=== PATIENT | male | born 1965 | race African-American/Black ===

== ENCOUNTER 2016-09-07 13:25 | Emergency (ER) | payer MEDICARE, MEDICAID ==
[~2016-09-07] VITALS: Ht 172.7 cm; Wt 100.0 kg
[~2016-09-07 13:25] MED LIST: AMOX875T PO; FENO145T2 PO; FOLI5CAP PO; LEVE500T8 PO; LOVA20TA PO; MULTTAB67 PO; VITA10003 PO
[2016-09-07 13:26] VITALS: BP 129/73; PULSE 96; RESP 15; TEMP 99.4; O2SAT 98
--- NOTE | 2016-09-07 14:25 | PD ---
HPI Chief Complaint: Cold / Flu Symptoms Time Seen by Provider: 14:00 Travel History International Travel<30 days: No Contact w/Intl Traveler<30days: No Traveled to known affect area: No History of Present Illness HPI 51-year-old Afro-Beninese male presents the emergency department approximately one week history of upper respiratory type symptoms. Patient states it started last week in improved at first but then worsened over the weekend. Patient is been taking [id number] cough medications for the past week without much improvement. He denies significant shortness of breath, but has had a productive cough which is worsened in the last 2 days. Blake no nausea or vomiting but has decreased appetite. He has generalized body aches and fatigue. He denies abdominal pain or urinary symptoms. Patient denies significant sore throat but has significant congestion and sinus drainage. He denies ear pain. He is a nonsmoker. He has no known drug allergies. PFSH Past Medical History Seizures: Yes Social History Alcohol Use: No Tobacco Use: No Substance Use: No Allergies-Medications (Allergen,Severity, Reaction): Coded Allergies: No Known Allergies (Unverified , 09/07/16) Reported Meds & Prescriptions Reported Meds & Active Scripts Active Amoxicillin 875 Mg Tab 875 Mg PO BID Reported Folic Acid 5 Mg Cap 5 Mg PO DAILY Vitamin D-3 (Cholecalciferol) 1,000 Unit Tab 1,000 Units PO DAILY Lovastatin 20 Mg Tab 20 Mg PO DAILY Fenofibrate 145 Mg Tab 145 Mg PO DAILY Levetiracetam 500 Mg Tab 500 Mg PO DAILY Multiple Vitamin 1 Tab 1 Tab PO DAILY Review of Systems General / Constitutional: Positive: Fever, Chills Eyes: No: Visual changes HENT: Positive: Headaches, Rhinitis, Rhinorrhea, Congestion, No: Vertigo, Lightheadedness, Sore Throat, Nosebleed, Neck Stiffness, Neck Pain, Gingival Bleeding, Dental Difficulties, Ear Discharge, Earache Cardiovascular: No: Chest Pain or Discomfort Respiratory: Positive: Cough, Wheezing, Sneezing, No: Shortness of Breath Gastrointestinal: Positive: Loss of Appetite, No: Nausea, Vomiting, Diarrhea, Abdominal Pain Genitourinary: No: Dysuria Musculoskeletal: No: Pain Skin: No Rash Neurologic: No: Weakness Psychiatric: No: Depression Endocrine: No: Polydipsia Hematologic/Lymphatic: No: Easy Bruising Physical Exam Narrative GENERAL: Patient appears ill but not septic. SKIN: Warm and dry. Mild decreased pallor. Normal turgor. No diaphoresis. HEAD: Atraumatic. Normocephalic. EYES: Pupils equal and round. No scleral icterus. No injection or drainage. ENT: No nasal bleeding or discharge. Mucous membranes pink and moist. TMs are clear bilaterally. Patient has purulent rhinitis. Pharynx appears somewhat injected with cobblestoning but otherwise unremarkable. No significant lymphadenopathy. Airway is patent. Uvula is midline. NECK: Trachea midline. Supple and nontender without significant lymphadenopathy. CARDIOVASCULAR: Regular rate and rhythm. RESPIRATORY: No accessory muscle use. Diffuse wheezes and rales cough throughout to auscultation. Breath sounds equal bilaterally. No egophony or fremitus. GASTROINTESTINAL: Abdomen soft, non-tender, nondistended. Hepatic and splenic margins not palpable. MUSCULOSKELETAL: Extremities without clubbing, cyanosis, or edema. No obvious deformities. NEUROLOGICAL: Awake and alert. No obvious cranial nerve deficits. Motor grossly within normal limits. Five out of 5 muscle strength in the arms and legs. Normal speech. PSYCHIATRIC: Appropriate mood and affect; insight and judgment normal. Data Data Last Documented VS Vital Signs Date Time Temp Pulse Resp B/P Pulse Ox O2 Delivery O2 Flow Rate FiO2 09/07/16 13:26 99.4 96 15 129/73 98 Orders Chest, Pa & Lat (09/07/16 14:00) [facility] Medical Decision Making Medical Screen Exam Complete: Yes Emergency Medical Condition: Yes Differential Diagnosis Upper respiratory infection. Sinusitis. Pneumonia. Bronchitis Narrative Course Patient is medically stable at time of exam. Chest x-ray PA and lateral was ordered. Chest x-ray is read as normal for patient of this age by radiologist. No acute findings noted. Patient is felt to have bronchitis sinusitis. Patient will be treated with Levaquin 500 mg daily for the next 10 days. She given Flonase nasal spray 2 sprays each nostril daily. Patient is given prednisone 20 mg twice a day 5 days. Patient is to rest and push fluids and follow-up as needed. Diagnosis Primary Impression: Bronchitis Additional Impression: Sinusitis, acute Qualified Code: J01.40 - Acute pansinusitis, recurrence not specified Referrals: [facility] Primary Care Physician Patient Instructions: Acute Bronchitis (ED), General Instructions, Sinusitis ( ED) Additional Instructions: Chest x-ray is read as normal for patient of this age by radiologist. No acute findings noted. Patient is felt to have bronchitis sinusitis. Patient will be treated with Levaquin 500 mg daily for the next 10 days. She given Flonase nasal spray 2 sprays each nostril daily. Patient is given prednisone 20 mg twice a day 5 days. Patient is to rest and push fluids and follow-up as needed. Med/Other Pt SpecificInfo: Prescription(s) given Disposition: 01 DISCHARGE HOME Condition: Stable Donis Curiel Sep 07, 2016 14:25
--- NOTE | 2016-09-07 14:38 | RADRPT ---
EXAM DATE/TIME: 09/07/2016 14:16 [facility] COMPARISON: No previous studies available for comparison. INDICATIONS : Fever and cough. MEDICAL HISTORY : Seizure SURGICAL HISTORY : None. ENCOUNTER: Initial ACUITY: 4 - 6 days PAIN SCORE: 3/10 LOCATION: Bilateral chest FINDINGS: PA and lateral views of the chest demonstrate the lungs to be symmetrically aerated without evidence of mass, infiltrate or effusion. The cardiomediastinal contours are unremarkable. Osseous structure s are intact. CONCLUSION: Normal examination for a patient of this age. Isrrael Luke MD on September 07, 2016 at 14:34 Board Certified Radiologist. This report was verified electronically.
[2016-09-07] MEDS ORDERED: LEVA500T20 PO (14:52)
[2016-09-07] MEDS ORDERED: FLUT1SPR5 EACH NARE (14:52)
[2016-09-07] MEDS ORDERED: FOLI400T PO (15:31)
[2016-09-07] MEDS ORDERED: CHOL100025 CHEW (15:32)
== END 2016-09-07 15:38 | disposition home or self-care (01) ==
LOC: NEPK 13:25
DX: J40 Bronchitis, not specified as acute or chronic (principal); J01.40 Acute pansinusitis, unspecified; M79.1 Myalgia; R53.83 Other fatigue
CPT/HCPCS: 71020; 99284

== ENCOUNTER 2017-02-17 10:32 | Emergency (ER) | payer MEDICARE, MEDICAID ==
[~2017-02-17] VITALS: Ht 172.7 cm; Wt 90.0 kg
[~2017-02-17 10:32] MED LIST changes: -AMOX875T PO; +CHOL100025 CHEW; +FLUT1SPR5 EACH NARE; +FOLI400T PO; -FOLI5CAP PO; +LEVA500T33 PO; -VITA10003 PO
[2017-02-17 10:33] VITALS: BP 139/79; PULSE 87; RESP 16; TEMP 98.4; O2SAT 97
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
[2017-02-17] MEDS ORDERED: ORPHENADRINE INJ 60 MG/2 ML AMP IM ONE (12:30)
[2017-02-17] MEDS ORDERED: KETOROLAC TROMETHAMINE 60 MG/2 ML (IM) VIAL IM ONE ×3 (12:30→12:39)
[2017-02-17] MEDS ORDERED: ORPHENADRINE INJ 60 MG/2 ML AMP ONE (12:39)
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
[2017-02-17] MEDS ORDERED: IBUP1TAB7 PO (13:27)
[2017-02-17] MEDS ORDERED: ROBA500T PO (13:27)
== END 2017-02-17 13:57 | disposition home or self-care (01) ==
LOC: NEPD 10:32
DX: R51 Headache (principal); S20.211A Contusion of right front wall of thorax, initial encounter; M54.5 Low back pain; R56.9 Unspecified convulsions; E78.00 Pure hypercholesterolemia, unspecified; V43.52XA Car driver injured in collision with other type car in traffic accident, initial encounter; Z79.899 Other long term (current) drug therapy
CPT/HCPCS: 70450; 71101; 72100; 96372; 99285; J1885; J2360

== ENCOUNTER 2018-01-12 21:00 | Inpatient (IN) ==
[2018-01-13] MEDS ORDERED: Sod Chloride 0.9% Inj 1,000 ML IV.SIG ONE (02:26)
[2018-01-13] MEDS ORDERED: Morphine Inj 4 MG/ML Vial IV.PUSH ONE (02:26)
--- NOTE | 2018-01-13 02:30 | ED ---
HPI General Chief Complaint: Abdominal Pain Stated Complaint: abd pain Time Seen by Provider: 01/13/18 02:17 Source: patient Mode of arrival: ambulatory Limitations: no limitations History of Present Illness MD complaint: Reports other (Left scrotal area pain) Onset (ago): week(s) (4) Pain Consistency: constant Location: Reports L flank (Left inguinal) Severity: severe Severity scale (1-10): 8 Quality: Reports aching and sharp Radiation: Reports none Migration to: Reports no migration Relieving factors: nothing Exacerbating factors: nothing Associated symptoms: Reports denies other symptoms Related Data Home Medications Medication Instructions Recorded Confirmed levetiracetam 500 mg PO BID 12/22/17 12/22/17 Previous Rx's Medication Instructions Recorded ibuprofen 600 mg PO TID PRN #30 tab 12/22/17 methocarbamol [Robaxin-] 750 mg PO QID PRN #40 tab 12/22/17 Allergies Allergy/AdvReac Type Severity Reaction Status Date / Time No Known Allergies Allergy Verified 01/12/18 22:13 Review of Systems ROS: all other systems reviewed are negative PMFSH History History Provided By: Patient Medical History Medical History Seizure (Acute) Surgical History Surgical History No history of previous surgery (Acute) Social History Social History Substance History: No History of Abuse Second Hand Smoke Exposure: No Smoking Status: Never smoker How Often Do You Have a Drink Containing Alcohol: Never Recent Travel in [facility] within the Last 8 Weeks: No Recent Out of Country Travel within the Last 8 Weeks: No Immunization History Tetanus Immunization: >5 Years Exam Narrative Exam Narrative: GENERAL: Well-nourished, well-developed patient in no apparent distress. SKIN: Warm and dry. HEAD: Atraumatic. Normocephalic. EYES: Pupils equal and round. No scleral icterus. No injection or drainage. ENT: No nasal bleeding or discharge. Mucous membranes pink and moist. NECK: Trachea midline. No JVD. CARDIOVASCULAR: Regular rate and rhythm. no rubs or gallops RESPIRATORY: No accessory muscle use. Clear to auscultation. Breath sounds equal bilaterally. GASTROINTESTINAL: Abdomen soft, non-tender, nondistended. No rebound or guarding.... Large left inguinal hernia, into left hemiscrotum, non-reducible MUSCULOSKELETAL: Extremities without clubbing, cyanosis, or edema. No obvious deformities. NEUROLOGICAL: Awake and alert. No obvious cranial nerve deficits. Motor grossly within normal limits. Five out of 5 muscle strength in the arms and legs. Normal speech. Course Initial Documented Vital Signs Temperature 98.1 F 01/12/18 22:10 Pulse Rate 57 L 01/12/18 22:10 Respiratory Rate 15 01/12/18 22:10 Blood Pressure 144/67 H 01/12/18 22:10 Pulse Oximetry 98 01/12/18 22:10 Last Documented Vital Signs Temperature 98.1 F 01/12/18 22:10 Pulse Rate 89 01/12/18 22:13 Respiratory Rate 18 01/12/18 22:13 Blood Pressure 161/90 H 01/12/18 22:13 Pulse Oximetry 100 01/12/18 22:13 Medical Decision Making MDM Narrative Medical Screen Exam Complete: Yes Emergency Medical Condition: Yes Medical Records Medical records reviewed: Yes I reviewed the patient's medical records. Lab Data Lab results reviewed: Yes I reviewed the patient's lab results. Result diagrams: 01/13/18 02:53 01/13/18 02:53 Lab Results 01/13/18 Range/Units 02:53 WBC 6.6 (4.0-11.0) th/mm3 RBC 5.88 (4.50-5.90) mil/mm3 Hgb 15.3 (13.0-17.0) gm/dL Hct 46.3 (39.0-51.0) % MCV 78.7 L (80.0-100.0) fL MCH 25.9 L (27.0-34.0) pg MCHC 33.0 (32.0-36.0) % RDW 14.1 (11.6-17.2) % Plt Count 311 (150-450) th/mm3 MPV 7.6 (7.0-11.0) fL Neut % (Auto) 32.6 (16.0-70.0) % Lymph % (Auto) 51.5 H (9.0-44.0) % [place] % (Auto) 10.6 H (0.0-8.0) % Eos % (Auto) 4.9 H (0.0-4.0) % Baso % (Auto) 0.4 (0.0-2.0) % Neut # (Auto) 2.2 (1.8-7.7) th/mm3 Lymph # (Auto) 3.4 (1.0-4.8) th/mm3 [place] # (Auto) 0.7 (0.0-0.9) th/mm3 Eos # (Auto) 0.3 (0.0-0.4) th/mm3 Baso # (Auto) 0.0 (0.0-0.2) th/mm3 WBC Differential . Differential Comment Auto diff final Imaging Data Attestation: I personally reviewed and interpreted this imaging study as follows : My impression: large left inguinal hernia without perforation, no edematous wall noted. Discharge Plan Discharge Disposition Patient Disposition: 30 Still Patient Discharge Condition Condition: Stable Discharge Details Diagnosis: Incarcerated left inguinal hernia Physicians Team ED Provider: Yemi Cox Primary Care Provider: UNKNOWN, Rxs /Orders / Referrals /Forms Prescriptions: No Action levetiracetam 500 mg Tablet 500 mg PO BID RF: 0 methocarbamol [Robaxin-750] 750 mg tablet 750 mg PO QID PRN (Reason: pain) Qty: 40 RF: 0 ibuprofen 600 mg tablet 600 mg PO TID PRN (Reason: pain) Qty: 30 RF: 0 Discharge Interventions Interventions: Vital Signs Last Done: 01/12/18 22:13 Status ED Status: With Doctor
[2018-01-13 03:17] LABS: Bilirubin,Urine Negative (Negative); Clarity,Urine Hazy (Clear); Color,Urine Yellow (Yellw/Straw); Glucose,Urine (UA) Negative (Negative); Leukocyte Esterase,Urine Negative (Negative); Mucus,Urine Few /lpf (Occasional); Nitrite,Urine Negative (Negative); Specific Gravity,Urine 1.019 (1.002-1.035)
[2018-01-13 03:18] LABS: Baso % (Auto) 0.4 % (0.0-2.0); Eos # (Auto) 0.3 th/mm3 (0.0-0.4); Eos % (Auto) 4.9 % (0.0-4.0); Hematocrit 46.3 % (39.0-51.0); Hemoglobin 15.3 gm/dL (13.0-17.0); Lymph # (Auto) 3.4 th/mm3 (1.0-4.8); Lymph % (Auto) 51.5 % (9.0-44.0); Mean Corpuscular Hemoglobin 25.9 pg (27.0-34.0); Mean Corpuscular Volume 78.7 fL (80.0-100.0); Mean Platelet Volume 7.6 fL (7.0-11.0); Mono # (Auto) 0.7 th/mm3 (0.0-0.9); Mono % (Auto) 10.6 % (0.0-8.0); Neut # (Auto) 2.2 th/mm3 (1.8-7.7); Neut % (Auto) 32.6 % (16.0-70.0); Platelet Count 311 th/mm3 (150-450); Red Blood Count 5.88 mil/mm3 (4.50-5.90); Red Cell Distribution Width 14.1 % (11.6-17.2); White Blood Count 6.6 th/mm3 (4.0-11.0)
--- NOTE | 2018-01-13 03:31 | CT ---
EXAM DATE: 01/13/2018 3:16 AM EST AGE/SEX: 52 years / Male INDICATIONS: Left lower quadrant pain and swelling, patient has persistent inguinal hernia. CLINICAL DATA: This is the patient's initial encounter. Patient reports that signs and symptoms have been present for 1 day and indicates a pain score of 10/10. MEDICAL/SURGICAL HISTORY: . Inguinal hernia. None. RADIATION DOSE: 7.46 CTDI (mGy) COMPARISON: No prior exams available for comparison. TECHNIQUE: Multiple contiguous axial images were obtained through the abdomen. Images were obtained using multiple row detector helical technique. Using automated exposure control and adjustment of the mA and/or kV according to patient size, radiation dose was kept as low as reasonably achievable to o btain optimal diagnostic quality images. DICOM format image data is available electronically for rev iew and comparison. FINDINGS: Lower Lungs: The visualized lower lungs are clear. Liver: The liver has a homogeneous density without space-occupying lesion. There is no dilation of th e biliary tree. Spleen: Homogeneous density without enlargement. Pancreas: Unremarkable without mass or calcification. Kidneys: Normal in size and shape. No evidence of mass or hydronephrosis. Adrenal Glands: Unremarkable. Aorta: The aorta and proximal iliac vessels are grossly unremarkable without aneurysmal dilation. Bowel/Mesentery: Colonic diverticulosis. No abnormal dilatation of bowel. No focal wall thickening o r inflammatory changes. Large left inguinal hernia containing loop of sigmoid colon. No definite inca rceration or obstruction. Abdominal Wall: Intact. Retroperitoneum: No evidence of adenopathy in the retrocrural, para-aortic, or deep pelvic regions. Bladder: Contours are smooth. Reproductive Organs: No abnormal masses or calcifications seen. Inguinal: Very large left inguinal hernia containing a loop of sigmoid colon. Bony Structures: Unremarkable. CONCLUSION: Large left inguinal hernia containing loop of sigmoid colon. No evidence of incarceration at present. Electronically signed by: Harshad Mathew MD 01/13/2018 3:30 AM EST
[2018-01-13 03:37] LABS: Albumin 4.6 g/dL (3.4-5.0); Anion Gap 10 meq/L (5-15); Aspartate Aminotransferase 31 U/L (15-37); Blood Urea Nitrogen 14 mg/dL (7-18); Calcium 9.2 mg/dL (8.5-10.1); Carbon Dioxide 28.2 meq/L (21.0-32.0); Chloride 101 meq/L (98-107); Glomerular Filtration Rate 69 mL/min (>89); Glucose,Random 99 mg/dL (74-106); Lipase 173 U/L (73-393); Sodium 139 meq/L (136-145)
[2018-01-13 03:41] LABS: Alanine Aminotransferase 43 U/L (12-78); Alkaline Phosphatase 47 U/L (45-117); Total Protein 9.1 g/dL (6.4-8.2)
[2018-01-13] MEDS ORDERED: Bisacodyl 10 MG Supp RECTAL PRN (03:54)
[2018-01-13] MEDS: Sod Chloride 0.9% Inj 1,000 ML IV.CONT SCH ×2 (04:03→20:07)
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
[2018-01-13] MEDS: levETIRAcetam 500 MG Tablet PO SCH ×2 (11:44→22:13)
[2018-01-13] MEDS ORDERED: Bupivacaine/Epinephrine PF Inj 0.5% 30 ML Vial ONE (13:51)
[2018-01-13] MEDS ORDERED: Lidocaine 1% Inj 50 ML Vial ONE (13:52)
[2018-01-13] MEDS ORDERED: Lidocaine 1%/Epinephrine 1:100,000 Inj 30 ML Vial ONE (14:44)
[2018-01-13] MEDS ORDERED: Metoprolol Tartrate 25 MG Tablet PO ONE (14:53)
[2018-01-13] MEDS ORDERED: Chlorhexidine Gluconate 2% 1 Pack (2 Cloths) TOPICAL ONE (14:53)
[2018-01-13] MEDS ORDERED: Sodium Chlor 0.9% Inj 500 ML IV.SIG ONE (15:00)
[2018-01-13] MEDS ORDERED: Lidocaine PF 1% Inj 5 ML Syringe INFILTRATN ONE (16:49)
[2018-01-13] MEDS ORDERED: ceFAZolin 2 GM Premix Inj 2 GM/50 ML PIGGYBACK IV.SIG ONE (16:59)
[2018-01-13] MEDS ORDERED: fentaNYL Citrate Inj 100 MCG/2 ML Ampul ONE (19:18)
[2018-01-13] MEDS ORDERED: *morphine SULFATE 4 MG/ML PERIprocedure ONLY ONE (19:33)
[2018-01-13] MEDS ORDERED: *Meperidine Inj 25 MG/ML Vial PERIprocedural Use ONLY ONE (19:58)
--- NOTE | 2018-01-13 20:45 | P.OP ---
- Preoperative Diagnosis (1) Incarcerated left inguinal hernia - Postoperative Diagnosis (1) Incarcerated left inguinal hernia Date of procedure: 01/13/18 Procedure: Reduction and repair of incarcerated, sliding, left inguinal hernia with mesh Anesthesia: other (LMA) Surgeon: Dean Segovia MD Fruit Picker: Shira Naylor CFA Estimated blood loss (mL): 100 IV fluids (mL): 900 Operation and Findings: Patient was marked on the left side and confirmed by the patient. He was taken to the operating room and placed on the operating table in the supine position. After an adequate level of laryngeal mask anesthesia was instituted the left groin was shaved prepped and draped. Time-out was taken, confirming the correct patient, site, and procedure to be performed. Skin and subcutaneous tissue was infiltrated with local anesthetic and an incision made in the left groin and carried through the subcutaneous tissue. Further subfascial injections were made with local anesthetic and an incision made in the external oblique fascia. The underlying tissue was swept free and the iliohypogastric nerve was identified and preserved. It was not dissected out of its [place] location. The patient was then noted to have an extremely large incarcerated hernia and the hernia was reduced from the scrotum up into the groin. The hernia sac was opened after dissecting much of the spermatic cord structures off of the hernia. The hernia was noted to be an extremely large sliding hernia with sigmoid colon comprised of part of the sidewall. This was dissected off of the hernia sac in the sigmoid colon and omentum was reduced into the abdominal cavity. The hernia sac was then ligated with a pursestring 2-0 silk suture to prevent extrusion of contents into the operative field. A sponge stick was used to push the sac back into the abdominal cavity. A 3 x 6 inch piece of atrium mesh was brought up in transfixed to the pubic tubercle with 2-0 Prolene suture. This was then run along the shelving edge of the inguinal ligament to complete the lateral edge of the repair. The mesh was split longitudinally to allow for egress of the cord structures. The floor was closed down with 2-0 Prolene sutures to prevent a large amount of intra- abdominal contents to push against the mesh. The mesh was then transfixed medially with interrupted 2-0 Prolene suture. The medial leaf of mesh was transfixed over the lateral leaf of mesh with 2 2-0 Prolene sutures. An additional excess piece of mesh was buttressed superiorly and medially to create more scar tissue to prevent hernia recurrence. With a newly created internal ring, and with hemostasis assured, the remaining local anesthetic was injected into the transversalis fascia and subcutaneous tissues. The external oblique fascia was closed with a running 3-0 Vicryl suture. Care was taken to keep the underlying tissues free from the repair. The subcutaneous tissue was reapproximated with interrupted 3-0 Vicryl suture and the skin closed with 5-0 PDS in a running subcuticular fashion. Sponge, needle and instrument counts were reported to be correct. The wound was dressed with Telfa and Tegaderm. The patient was extubated and taken back to the recovery room in stable condition.
[2018-01-13] MEDS: Morphine Inj 4 MG/ML Vial IV.PUSH PRN (22:13)
[2018-01-14] MEDS: Morphine Inj 4 MG/ML Vial IV.PUSH PRN ×4 (02:27→20:10)
[2018-01-14 07:06] LABS: Baso % (Auto) 0.1 % (0.0-2.0); Hematocrit 41.1 % (39.0-51.0); Lymph % (Auto) 8.2 % (9.0-44.0); Mean Corpuscular HGB Conc 34.1 % (32.0-36.0); Mean Corpuscular Hemoglobin 26.4 pg (27.0-34.0); Mean Corpuscular Volume 77.5 fL (80.0-100.0); Mean Platelet Volume 7.4 fL (7.0-11.0); Mono # (Auto) 1.6 th/mm3 (0.0-0.9); Mono % (Auto) 12.4 % (0.0-8.0); Neut % (Auto) 79.3 % (16.0-70.0); Platelet Count 254 th/mm3 (150-450); Red Blood Count 5.31 mil/mm3 (4.50-5.90); Red Cell Distribution Width 14.1 % (11.6-17.2); White Blood Count 12.7 th/mm3 (4.0-11.0)
[2018-01-14 07:31] LABS: Alanine Aminotransferase 38 U/L (12-78); Albumin 3.4 g/dL (3.4-5.0); Alkaline Phosphatase 38 U/L (45-117); Anion Gap 10 meq/L (5-15); Aspartate Aminotransferase 26 U/L (15-37); Blood Urea Nitrogen 12 mg/dL (7-18); Carbon Dioxide 25.2 meq/L (21.0-32.0); Chloride 105 meq/L (98-107); Glomerular Filtration Rate 75 mL/min (>89); Glucose,Random 128 mg/dL (74-106); Potassium 3.9 meq/L (3.5-5.1); Sodium 140 meq/L (136-145); Total Protein 7.2 g/dL (6.4-8.2)
[2018-01-14] MEDS: Fenofibrate 145 MG Tablet PO SCH (08:18)
[2018-01-14] MEDS: levETIRAcetam 500 MG Tablet PO SCH ×2 (08:18→20:10)
[2018-01-14] MEDS: Folic Acid 1 MG Tablet PO SCH (08:19)
--- NOTE | 2018-01-14 08:58 | P.PNIM ---
Subjective Interval history: f/u; incarcerated hernia in no acute distress. complaining of abdominal pain and mild nausea. no fever. no other complaints. Physical Exam Vital signs: Vital Signs 01/13/18 11:45 01/13/18 13:02 01/13/18 13:22 Temperature 97.9 F Pulse Rate 80 53 L Respiratory Rate 20 17 Blood Pressure 102/54 L 111/57 L Pulse Oximetry 99 100 01/13/18 19:10 01/13/18 19:30 01/13/18 19:45 Temperature 97.7 F Pulse Rate 85 90 81 Respiratory Rate 20 22 16 Blood Pressure 114/62 117/72 141/75 H Pulse Oximetry 97 98 98 01/13/18 20:00 01/13/18 20:04 01/13/18 20:15 Temperature Pulse Rate 84 76 Respiratory Rate 18 14 16 Blood Pressure 131/62 121/62 Pulse Oximetry 01/13/18 20:30 01/13/18 21:05 01/14/18 00:00 Temperature 98.1 F 98.9 F 98.4 F Pulse Rate 75 86 81 Respiratory Rate 16 19 18 Blood Pressure 115/62 130/73 126/71 Pulse Oximetry 100 100 100 01/14/18 08:00 Temperature 98.3 F Pulse Rate 73 Respiratory Rate 17 Blood Pressure 106/60 Pulse Oximetry 96 Intake & Output 01/13/18 01/14/18 01/14/18 18:59 06:59 18:59 Intake Total 550 / 550 2380 / 2380 Output Total 220 / 220 900 / 900 Balance 330 / 330 1480 / 1480 Weight 92.9 kg Intake: IV 550 / 550 1000 / 1000 NS Inj 1,000 ML @ 100 mls/hr IV 500 / 500 1000 / 1000 .CONT .Q10H [facility] Rx#:[id number] Ancef 2 GM Premix Inj 2 gm In 50 / 50 50 ml @ 0 mls/hr IV.SIG .STK- MED ONE Rx#:[id number] Oral 480 / 480 Anesthesia Amount 900 / 900 Output: Urine 220 / 220 800 / 800 Estimated Blood Loss 100 / 100 Other: # Voids 1 - Constitutional no acute distress - Routine Respiratory Exam Present: CTA bilaterally - Routine Cardiovascular Exam Present: RRR - Routine Abdominal Exam Present: soft, tenderness (mild generalized tenderness.) - Routine Extremities Exam Comments: no pedal edema. - Routine Neurological Exam Present: alert, oriented X3 Results - Labs CBC & Chem 7: 01/14/18 06:36 01/14/18 06:36 Laboratory Results - last 24 hr 01/14/18 01/14/18 06:36 06:36 WBC 12.7 H RBC 5.31 Hgb 14.0 Hct 41.1 MCV 77.5 L MCH 26.4 L MCHC 34.1 RDW 14.1 Plt Count 254 MPV 7.4 Neut % (Auto) 79.3 H Lymph % (Auto) 8.2 L [place] % (Auto) 12.4 H Eos % (Auto) 0.0 Baso % (Auto) 0.1 Neut # (Auto) 10.0 H Lymph # (Auto) 1.0 [place] # (Auto) 1.6 H Eos # (Auto) 0.0 Baso # (Auto) 0.0 WBC Differential . Differential Comment Auto diff final Sodium 140 Potassium 3.9 Chloride 105 Carbon Dioxide 25.2 Anion Gap 10 BUN 12 Creatinine 1.23 Estimated GFR 75 L Random Glucose 128 H Calcium 8.0 L D Total Bilirubin 0.6 AST 26 ALT 38 Alkaline Phosphatase 38 L Total Protein 7.2 D Albumin 3.4 D Assessment and Plan - Assessment (1) Incarcerated left inguinal hernia Code(s): K40.30 - Unilateral inguinal hernia, with obstruction, without gangrene , not specified as recurrent Status: Acute (2) Left inguinal hernia Code(s): K40.90 - Unilateral inguinal hernia, without obstruction or gangrene, not specified as recurrent Status: Acute - Plan Large left incarcerated inguinal hernia: -Surgery has been consulted; s/p surgical repair. -continue with pain control -management per general surgery Seizure disorder: -Continue Keppra Hyperlipidemia: Continue statin GI prophylaxis: PPI. Stool softener PRN constipation. DVT PPx: Lovenox Discharge Planning: home; when cleared by general surgery.
[2018-01-14] MEDS ORDERED: Folic Acid 1 MG Tablet PO SCH (09:00)
--- NOTE | 2018-01-14 10:51 | P.PNGS ---
Subjective Interval history: Resting in bed Painful Physical Exam Vital signs: Vital Signs 01/13/18 11:45 01/13/18 13:02 01/13/18 13:22 Temperature 97.9 F Pulse Rate 80 53 L Respiratory Rate 20 17 Blood Pressure 102/54 L 111/57 L Pulse Oximetry 99 100 01/13/18 19:10 01/13/18 19:30 01/13/18 19:45 Temperature 97.7 F Pulse Rate 85 90 81 Respiratory Rate 20 22 16 Blood Pressure 114/62 117/72 141/75 H Pulse Oximetry 97 98 98 01/13/18 20:00 01/13/18 20:04 01/13/18 20:15 Temperature Pulse Rate 84 76 Respiratory Rate 18 14 16 Blood Pressure 131/62 121/62 Pulse Oximetry 01/13/18 20:30 01/13/18 21:05 01/14/18 00:00 Temperature 98.1 F 98.9 F 98.4 F Pulse Rate 75 86 81 Respiratory Rate 16 19 18 Blood Pressure 115/62 130/73 126/71 Pulse Oximetry 100 100 100 01/14/18 08:00 Temperature 98.3 F Pulse Rate 73 Respiratory Rate 17 Blood Pressure 106/60 Pulse Oximetry 96 Intake & Output 01/13/18 01/14/18 01/14/18 18:59 06:59 18:59 Intake Total 550 / 550 2380 / 2380 Output Total 220 / 220 900 / 900 Balance 330 / 330 1480 / 1480 Weight 92.9 kg Intake: IV 550 / 550 1000 / 1000 NS Inj 1,000 ML @ 100 mls/hr IV 500 / 500 1000 / 1000 .CONT .Q10H [facility] Rx#:[id number] Ancef 2 GM Premix Inj 2 gm In 50 / 50 50 ml @ 0 mls/hr IV.SIG .STK- MED ONE Rx#:[id number] Oral 480 / 480 Anesthesia Amount 900 / 900 Output: Urine 220 / 220 800 / 800 Estimated Blood Loss 100 / 100 Other: # Voids 1 Narrative: Alert and awake Abd: soft LEFT groin with incision; athletic supporter in place Results - Labs 01/14/18 06:36 01/14/18 06:36 Laboratory Results - last 24 hr 01/14/18 01/14/18 06:36 06:36 WBC 12.7 H RBC 5.31 Hgb 14.0 Hct 41.1 MCV 77.5 L MCH 26.4 L MCHC 34.1 RDW 14.1 Plt Count 254 MPV 7.4 Neut % (Auto) 79.3 H Lymph % (Auto) 8.2 L [place] % (Auto) 12.4 H Eos % (Auto) 0.0 Baso % (Auto) 0.1 Neut # (Auto) 10.0 H Lymph # (Auto) 1.0 [place] # (Auto) 1.6 H Eos # (Auto) 0.0 Baso # (Auto) 0.0 WBC Differential . Differential Comment Auto diff final Sodium 140 Potassium 3.9 Chloride 105 Carbon Dioxide 25.2 Anion Gap 10 BUN 12 Creatinine 1.23 Estimated GFR 75 L Random Glucose 128 H Calcium 8.0 L D Total Bilirubin 0.6 AST 26 ALT 38 Alkaline Phosphatase 38 L Total Protein 7.2 D Albumin 3.4 D - Imaging Imaging: ITS Impressions Abdomen/Pelvis CT 01/13/18 02:26 CONCLUSION: Large left inguinal hernia containing loop of sigmoid colon. No evidence of incarceration at present. Assessment and Plan - Assessment (1) Left inguinal hernia Code(s): K40.90 - Unilateral inguinal hernia, without obstruction or gangrene, not specified as recurrent Status: Acute Plan: 52 year old male with large LEFT inguinal hernia -POD1 repair of LEFT inguinal hernia -Regular diet -Pain control -Patient will likely need to stay today and overnight for pain control -Likely DC tomorrow; I put Rx on chart for [place] Dressing dry and intact. Still quite painful. The exam, history, and the medical decision-making described in the above note were completed with the assistance of the mid-level provider. I reviewed and agree with the findings presented. I attest that I had a [id number] encounter with the patient on the same day, and personally performed and documented my assessment and findings in the medical record.
[2018-01-14] MEDS: Sod Chloride 0.9% Inj 1,000 ML IV.CONT SCH ×3 (12:05→20:27)
--- NOTE | 2018-01-14 15:58 | ECG ---
Date Performed: 01/13/2018 Time Performed: 15:14:42 PTAGE: 52 years EKG: Sinus rhythm ST ELEVATION, PROBABLY EARLY REPOLARIZATION NONSPECIFIC ST & T-WAVE ABNORMALITY Since previous millie ng, no significant change noted BORDERLINE ECG PREVIOUS TRACING : 05/24/2013 22.57 DOCTOR: Lien Pantoja Interpretating Date/Time 01/14/2018 15:57:06
[2018-01-15] MEDS: Morphine Inj 4 MG/ML Vial IV.PUSH PRN ×4 (00:08→13:16)
[2018-01-15] MEDS: Sod Chloride 0.9% Inj 1,000 ML IV.CONT SCH ×3 (03:43→09:13)
--- NOTE | 2018-01-15 08:19 | P.PNIM ---
Subjective Interval history: in no acute distress. resting comfortably. pain is mild. no fever. no nausea or vomiting. Physical Exam Vital signs: Vital Signs 01/14/18 11:59 01/14/18 16:00 01/14/18 20:00 Temperature 98.1 F 98.3 F 98.2 F Pulse Rate 88 72 97 H Respiratory Rate 17 17 18 Blood Pressure 123/68 113/69 143/70 H Pulse Oximetry 93 L 93 L 97 01/15/18 00:00 Temperature 98.5 F Pulse Rate 100 H Respiratory Rate 18 Blood Pressure 131/82 Pulse Oximetry 94 L Intake & Output 01/14/18 01/15/18 01/15/18 18:59 06:59 18:59 Intake Total 960 / 960 1480 / 1480 Output Total 1200 / 1200 600 / 600 Balance -240 / -240 880 / 880 Weight 92.2 kg 92.2 kg Intake: IV 1000 / 1000 NS Inj 1,000 ML @ 100 mls/hr IV 1000 / 1000 .CONT .Q10H [facility] Rx#:[id number] Oral 960 / 960 480 / 480 Output: Urine 1200 / 1200 600 / 600 Other: # Voids 1 Weight On Admission 92.2 kg - Constitutional no acute distress - Routine Respiratory Exam Present: CTA bilaterally - Routine Cardiovascular Exam Present: RRR - Routine Abdominal Exam Present: soft - Routine Extremities Exam Comments: no pedal edema. - Routine Neurological Exam Present: alert, oriented X3 Results - Labs CBC & Chem 7: 01/14/18 06:36 01/14/18 06:36 Assessment and Plan - Assessment (1) Incarcerated left inguinal hernia Code(s): K40.30 - Unilateral inguinal hernia, with obstruction, without gangrene , not specified as recurrent Status: Acute (2) Left inguinal hernia Code(s): K40.90 - Unilateral inguinal hernia, without obstruction or gangrene, not specified as recurrent Status: Acute - Plan Large left incarcerated inguinal hernia: -Surgery has been consulted; s/p surgical repair. -continue with pain control -management per general surgery Seizure disorder: -Continue Keppra Hyperlipidemia: Continue statin GI prophylaxis: PPI. Stool softener PRN constipation. DVT PPx: Lovenox Discharge Planning: home- likely today; when cleared by general surgery. E-Foarsce was reviewed.
[2018-01-15 08:20] VITALS: RESP 20
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
[2018-01-15] MEDS: Folic Acid 1 MG Tablet PO SCH (09:15)
[2018-01-15] MEDS: Fenofibrate 145 MG Tablet PO SCH (09:15)
[2018-01-15] MEDS: levETIRAcetam 500 MG Tablet PO SCH (09:15)
[2018-01-15 12:21] VITALS: BP 160/78; PULSE 115; TEMP 98.4; O2SAT 95
--- NOTE | 2018-01-15 13:05 | P.PNGS ---
Subjective Patient reports: feels better, pain is less Physical Exam Vital signs: Vital Signs 01/14/18 16:00 01/14/18 20:00 01/15/18 00:00 Temperature 98.3 F 98.2 F 98.5 F Pulse Rate 72 97 H 100 H Respiratory Rate 17 18 18 Blood Pressure 113/69 143/70 H 131/82 Pulse Oximetry 93 L 97 94 L 01/15/18 08:00 01/15/18 12:00 Temperature 100.0 F H 98.4 F Pulse Rate 105 H 115 H Respiratory Rate 20 20 Blood Pressure 143/84 H 160/78 H Pulse Oximetry 98 95 Intake & Output 01/14/18 01/15/18 01/15/18 18:59 06:59 18:59 Intake Total 960 / 960 1480 / 1480 949.8 / 949.8 Output Total 1200 / 1200 600 / 600 1550 / 1550 Balance -240 / -240 880 / 880 -600.2 / -600.2 Weight 92.2 kg 92.2 kg Intake: IV 1000 / 1000 949.8 / 949.8 NS Inj 1,000 ML @ 100 mls/hr IV 1000 / 1000 949.8 / 949.8 .CONT .Q10H [facility] Rx#:[id number] Oral 960 / 960 480 / 480 Output: Urine 1200 / 1200 600 / 600 1550 / 1550 Other: # Voids 1 Weight On Admission 92.2 kg - Constitutional no acute distress - Routine Abdominal Exam Present: soft, normoactive bowel sounds, tenderness, distended Comments: surgical incisions and dressing clean, dry and intact without complications Results - Labs 01/14/18 06:36 01/14/18 06:36 - Imaging Imaging: ITS Impressions Abdomen/Pelvis CT 01/13/18 02:26 CONCLUSION: Large left inguinal hernia containing loop of sigmoid colon. No evidence of incarceration at present. Assessment and Plan - Assessment (1) Left inguinal hernia Code(s): K40.90 - Unilateral inguinal hernia, without obstruction or gangrene, not specified as recurrent Status: Acute Plan: 52 year old male with large LEFT inguinal hernia -POD2 repair of LEFT inguinal hernia -Regular diet -Pain controlled -DC home
== END 2018-01-15 15:08 | disposition home or self-care (01) ==
LOC: NED 21:00 → NEDA 01-13 03:54 → INTOOBSV 01-13 03:54 → NEDH 01-13 07:39 → NEPHCDU 01-13 13:52 → N07 01-13 17:23
PROVIDERS: ADMIT Internal Medicine; ATTEND Internal Medicine